=== PATIENT | male | born 1945 | race Caucasian/White ===

== ENCOUNTER 2016-11-20 10:46 | Emergency (ER) | payer OTHER, MEDICARE ==
[2016-11-20 10:52] VITALS: RESP 16
--- NOTE | 2016-11-20 11:32 | EDPHY ---
H & P Stated Complaint: sharp pain under left rib. 06/02 . cough. pain worse with cough Time Seen by Provider: 11/20/16 11:27 HPI/ROS: CHIEF COMPLAINT: Cough HISTORY OF PRESENT ILLNESS: This patient is a 71 year old man presenting with one week of persistent cough. Five days ago, he had a powerful coughing fit and had a sudden onset of left-sided chest pain. He took one round of Zithromax, prescribed by a family friend who is an emergency physician. The cough and chest pain has persisted. It is associated with mild shortness of breath today and ecchymotic changes over his left chest wall. He also reports mild rhinorrhea. Symptoms are moderate in severity. Denies fever, chills, nausea, or vomiting. He is a former smoker. He has no history of COPD or emphysema. REVIEW OF SYSTEMS: Aside from elements discussed in the HPI, a comprehensive 10-point review of systems was reviewed and is negative. 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 HEENT: Atraumatic. Eyes: No icterus, no injection. Mouth: moist mucous membranes. No erythema or lesions. Neck: supple with no adenopathy. LUNGS: Bi-basilar crackles and rhonchi, right worse than left. CARDIAC: Regular rate and rhythm, no rubs, murmurs or gallops. Mild chest wall tenderness. No crepitus over the chest wall. ABDOMEN: Soft, nontender, nondistended, bowel sounds normal. BACK: Ecchymosis over the left flank and left lateral lower abdomen. EXTREMITIES: No trauma. No edema. Range of motion is normal throughout. NEURO: Alert and oriented, grossly nonfocal. SKIN: Warm and dry, no rash. PSYCHIATRIC: Normal mentation, no agitation. Portions of this note were transcribed by a medical recruiter. I personally performed a history, physical exam, medical decision making, and confirmed accuracy of information the transcribed note. Source: Patient Exam Limitations: No limitations - Personal History Current Tetanus/Diphtheria Vaccine: Unsure Current Tetanus Diphtheria and Acellular Pertussis (TDAP): Unsure - Medical/Surgical History Hx Asthma: No Hx Chronic Respiratory Disease: No Hx Diabetes: No Hx Cardiac Disease: Yes Hx Renal Disease: No Hx Cirrhosis: No Hx Alcoholism: No Hx HIV/AIDS: No Hx Splenectomy or Spleen Trauma: No Other PMH: cataract surgeries,high cholesterol - Social History Smoking Status: Former smoker Constitutional: Initial Vital Signs Temperature (C) 35.9 C L 11/20/16 10:50 Heart Rate 62 11/20/16 10:50 Respiratory Rate 16 11/20/16 10:50 Blood Pressure 143/84 H 11/20/16 10:50 O2 Sat (%) 94 11/20/16 10:50 O2 Delivery Mode Room Air Allergies/Adverse Reactions: No Allergies [NKDA] Allergy (Verified 11/20/16 10:54) Home Medications: Medication Instructions Recorded Albuterol [Ventolin Hfa Inhaler] 2 - 4 puffs IH QID PRN #0 mdi 11/20/16 Evolocumab [Repatha Pushtronex] 420 mg SQ 11/20/16 Hydrocodone/APAP 5/325 [[place] 1 tab PO Q6H PRN #20 tab 11/20/16 5/325 (*)] Hydrocortisone [Cortef] 20 mg PO 11/20/16 Irbesartan [Avapro] 75 mg PO 11/20/16 Levothyroxine [Synthroid 125 mcg 11/20/16 (*)] Metformin HCl [Metformin 1000 mg] 1,000 mg PO 11/20/16 Niacin ER [Niaspan 1000 mg (*)] 1,000 mg PO HS 11/20/16 celeCOXIB [CeleBREX] 100 mg PO 11/20/16 levOFLOXACIN [levAQUIN (*)] 750 mg PO DAILY #7 tab 11/20/16 predniSONE 40 mg PO DAILY #6 tab 11/20/16 Medical Decision Making - Diagnostics Imaging: Study: PA and Lateral Chest X-ray Indication: Cough Results: I viewed the images myself on the PACS system. My interpretation of the images is: No acute findings, no focal infiltrate. The radiologist interpretation is pending at the time of this dictation. Study: CTA of the Chest Indication: Chest pain, cough Results: The results of the study are: No acute findings. No PE. Diffuse peribronchial thickening. The study was read by the radiologist, Dr. Mcgrath. I viewed the images myself on the PACS system. Study: CT of the abdomen pelvis Indication: Flank tenderness and ecchymosis Results: The results of the study are: Negative for rib fracture. Left renal stone 1mm. Negative abdomen. Diverticulosis without diverticulitis. Left inguinal fat only. The study was read by the radiologist, Dr. Mcgrath. I viewed the images myself on the PACS system. ED Course/Re-evaluation: CXR ordered. No focal infiltrate seen. D-dimer is elevated. Chest CTA and abdomen/pelvic CT ordered. Chest CT is negative for PE or acute findings, does show peribronchial thickening. Albuterol nebulizer given in the ED. Abdomen CT has minimal subacute findings, no source of ecchymosis identified. Prescribed [place] for pain , levaquin, prednisone, and albuterol inhaler. Instructed to follow up with PCP or pulmonology if not improving. Differential Diagnosis: Differential diagnosis for the patient's cough and pleuritic pain was considered including but not limited to viral versus bacterial bronchitis, asthma, COPD, pulmonary emboli, upper respiratory infection, lower respiratory infection, and bronchospasm. - Data Points Laboratory Results: Laboratory Results 11/20/16 11:20 11/20/16 11:20 11/20/16 11:20 WBC 6.47 10^3/uL (3.80-9.50) RBC 4.86 10^6/uL (4.40-6.38) Hgb 16.9 g/dL (13.7-17.5) Hct 46.3 % (40.0-51.0) MCV 95.3 fL (81.5-99.8) MCH 34.8 H pg (27.9-34.1) MCHC 36.5 g/dL (32.4-36.7) RDW 11.7 % (11.5-15.2) Plt Count 210 10^3/uL (150-400) MPV 8.8 fL (8.7-11.7) Neut % (Auto) 69.4 % (39.3-74.2) Lymph % (Auto) 18.7 % (15.0-45.0) [place] % (Auto) 9.1 % (4.5-13.0) Eos % (Auto) 2.3 % (0.6-7.6) Baso % (Auto) 0.3 % (0.3-1.7) Nucleat RBC Rel Count 0.0 % (0.0-0.2) Absolute Neuts (auto) 4.49 10^3/uL (1.70-6.50) Absolute Lymphs (auto) 1.21 10^3/uL (1.00-3.00) Absolute Monos (auto) 0.59 10^3/uL (0.30-0.80) Absolute Eos (auto) 0.15 10^3/uL (0.03-0.40) Absolute Basos (auto) 0.02 10^3/uL (0.02-0.10) Absolute Nucleated RBC 0.00 10^3/uL (0-0.01) Immature Gran % 0.2 % (0.0-1.1) Immature Gran # 0.01 10^3/uL (0.00-0.10) D-Dimer 0.69 H ug/mLFEU (0.00-0.50) Sodium 138 mEq/L (134-144) Potassium 4.9 mEq/L (3.5-5.2) Chloride 104 mEq/L (97-110) Carbon Dioxide 25 mEq/l (22-31) Anion Gap 9 mEq/L (8-16) BUN 18 mg/dL (7-23) Creatinine 1.0 mg/dL (0.7-1.3) Estimated GFR > 60 Glucose 95 mg/dL (70-100) Calcium 9.5 mg/dL (8.5-10.4) Total Bilirubin 0.8 mg/dL (0.1-1.4) Conjugated Bilirubin 0.3 mg/dL (0.0-0.5) Unconjugated Bilirubin 0.5 mg/dL (0.0-1.1) AST 44 IU/L (17-59) ALT 57 IU/L (21-72) Alkaline Phosphatase 63 IU/L (38-126) Total Protein 6.8 g/dL (6.3-8.2) Albumin 3.7 g/dL (3.5-5.0) Lipase 163.0 IU/L (23-300) Medications Given: Discontinued Medications Albuterol (Proventil Neb) 3 ml IH EDNOW ONE Stop: 11/20/16 13:39 Last Admin: 11/20/16 13:52 Dose: 3 ml Levofloxacin (Levaquin) 750 mg PO EDNOW ONE PRN Reason: Protocol Stop: 11/20/16 13:41 Last Admin: 11/20/16 13:52 Dose: 750 mg Prednisone (Prednisone) 60 mg PO EDNOW ONE Stop: 11/20/16 13:39 Last Admin: 11/20/16 13:52 Dose: 60 mg Departure - Departure Disposition: Home, Routine, Self-Care Clinical Impression: Cough, Pleuritic chest pain Condition: Good Instructions: Chest Pain (ED), Acute Cough (ED) Additional Instructions: Take the [place], as prescribed, for severe pain. Use the albuterol inhaler has needed. Take the Levaquin and Prednisone as prescribed. Follow up with your primary care provider or pulmonology in 1-2 weeks if not improving. Referrals: Juanpablo Garcia MD [Medical Doctor] - As per Instructions (Gastroenterologist) Jagdish Frances MD [Primary Care Provider] - As per Instructions (Primary care provider.) Prescriptions: Hydrocodone/APAP 5/325 [[place] 5/325 (*)] 1 tab PO Q6H PRN #20 tab PRN Reason: Pain Albuterol [Ventolin Hfa Inhaler] 2 - 4 puffs IH QID PRN #0 mdi PRN Reason: cough levOFLOXACIN [levAQUIN (*)] 750 mg PO DAILY #7 tab predniSONE 40 mg PO DAILY #6 tab Report Scribed for: Dori Frank Report Scribed by: Casi Nieto Date of Report: 11/20/16 Time of Report: 11:32
--- NOTE | 2016-11-20 11:53 | DX ---
PA and Lateral Chest Indication: Shortness of breath and cough Comparison: None Findings: The lungs are well aerated and clear. Minimal diffuse peribronchial thickening is present i n the lower lung zones. No pneumothorax, airspace consolidation, edema or effusion. Heart size is nor mal. Mild degenerative disease present in the lower thoracic spine. Impression: No pneumonia. Minimal airways disease.
[2016-11-20 12:07] LABS: % IMMATURE GRANULYOCYTES 0.2 % (0.0-1.1); ABSOLUTE IMMATURE GRANULOCYTES 0.01 10^3/uL (0.00-0.10); ADD DIFF? NO; ADD MORPH? NO; ADD SCAN? NO; ATYPICAL LYMPHOCYTE FLAG 10 (0-99); FRAGMENT RBC FLAG 0 (0-99); HEMATOCRIT 46.3 % (40.0-51.0); HEMOGLOBIN 16.9 g/dL (13.7-17.5); LEFT SHIFT FLG 0 (0-99); LIPEMIA HEMOLYSIS FLAG 90 (0-99); MEAN CELL HEMOGLOBIN 34.8 pg (27.9-34.1); MEAN CELL HEMOGLOBIN CONCENTR. 36.5 g/dL (32.4-36.7); MEAN CELL VOLUME 95.3 fL (81.5-99.8); MEAN PLATELET VOLUME 8.8 fL (8.7-11.7); PLATELET CLUMPS FLAG 10 (0-99); PLATELET COUNT 210 10^3/uL (150-400); RED BLOOD CELL COUNT 4.86 10^6/uL (4.40-6.38); RED CELL DISTRIBUTION WIDTH 11.7 % (11.5-15.2)
[2016-11-20 12:24] LABS: ALANINE AMINOTRANSFERASE 57 IU/L (21-72); ALBUMIN 3.7 g/dL (3.5-5.0); ALKALINE PHOSPHATASE 63 IU/L (38-126); ANION GAP 9 mEq/L (8-16); ASPARTATE AMINOTRANSFERASE 44 IU/L (17-59); BILIRUBIN,TOTAL 0.8 mg/dL (0.1-1.4); BILIRUBIN-CONJUGATED 0.3 mg/dL (0.0-0.5); BILIRUBIN-UNCONJUGATED 0.5 mg/dL (0.0-1.1); CALCIUM 9.5 mg/dL (8.5-10.4); CARBON DIOXIDE 25 mEq/l (22-31); CHLORIDE 104 mEq/L (97-110); GLOMERULAR FILTRATION RATE > 60; GLUCOSE 95 mg/dL (70-100); POTASSIUM 4.9 mEq/L (3.5-5.2); SODIUM 138 mEq/L (134-144); TOTAL PROTEIN 6.8 g/dL (6.3-8.2)
[2016-11-20] MEDS ORDERED: IOPAMIDOL (ISOVUE 370) 100 ML BTL IV ONE (12:34)
--- NOTE | 2016-11-20 13:15 | CT ---
CT Chest Angiogram, 12:46 p.m. Indication: Chest pain. Evaluate for rib fracture and pulmonary embolic disease. Technique: Thinly collimated multidetector helical CT imaging was performed through the chest while 95 mL of Isovue-370 were injected intravenously without complication. The images were then transferr ed to an independent workstation where multiplanar reconstructions were performed. Dose reduction khalif hniques were utilized. Findings: CT Chest Angiogram: The pulmonary arterial system is well opacified. No intraluminal filling defect s to suggest acute or chronic thrombopulmonary embolic disease. The thoracic aorta is normal caliber . No aneurysm or dissection. CT Chest: The lungs are well aerated and clear. No pneumothorax, edema, or airspace consolidation. No suspicious pulmonary nodule or mass. The airway has diffuse mild peribronchial thickening. No centra l mucous plugging or endobronchial lesion. No bronchiectasis. No enlarged lymph node or mass throughout the axilla, mediastinum, or pulmonary [place]. Heart size is n ormal. No pericardial effusion. Calcified plaque is present along the left anterior descending liriano ry artery. Minimal subcutaneous stranding is present near the left posterolateral 11th rib. No underlying rib fr acture or bone lesion. Minimal multilevel degenerative disk disease. No compression fracture. Impression: 1. No evidence of thrombopulmonary embolic disease. 2. Clear lungs. No pneumothorax or effusion. 3. No rib fracture or bone lesion. Comment: The results were discussed with Zac Graff PA-C, shortly after study completion at 1:10 p .m. November 20, 2016.
--- NOTE | 2016-11-20 13:25 | CT ---
CT Scan of the Abdomen and Pelvis (With Contrast) Indication: Left flank ecchymosis. Technique: No oral or rectal contrast. 95 mL of Isovue-300 were given intravenously by machine power injection. Multidetector helical CT imaging was performed from the diaphragm to the symphysis pubis . Dose reduction techniques were utilized. Comparison: CT angiogram of the abdomen and pelvis dated April 16, 2013. Findings: Minimal subcutaneous stranding is present along the left flank near the posterolateral 11th rib on images 64 through 100 of series 8. The underlying ribs are normal. No fracture, bone lesion, or abdominal wall hematoma. No free fluid, retroperitoneal hematoma, lymphadenopathy or mass. The liver, spleen, pancreas, gallbladder, adrenal glands, and kidneys are normal. A 1 mm nonobstructi ng calculus resides in the superior pole left kidney on image 86 of series 4. No hydronephrosis or ur eteral calculi. The urinary bladder is partially obscured by beam hardening artifact radiating off bi lateral hip resurfacing prostheses. Bowel pattern is normal with exception of constipation and mild diverticulosis of the sigmoid colon. The appendix is normal. The abdominal aorta is normal caliber with mild calcified plaque. No dissection or aneurysm. A left i nguinal indirect hernia containing only fat has increased in size since 2012. No lytic or blastic blessing ne lesion. Impression: 1. Minimal subcutaneous edema along the posterior left flank. No underlying fracture or hematoma. 2. No pancreatitis or acute intraabdominal inflammatory process. 3. Left nephrolithiasis. No obstructing ureteral calculi. 4. Sigmoid diverticulosis. 5. Left indirect inguinal hernia, containing only fat, has increased in size since 2012. Comment: Results were called to Zac Graff PA-C, shortly after study completion.
[2016-11-20] MEDS ORDERED: predniSONE 20 MG TAB PO ONE (13:38)
[2016-11-20] MEDS ORDERED: ALBUTEROL 3 ML DEYVIAL IH ONE (13:38)
[2016-11-20 15:01] VITALS: BP 138/85; PULSE 81; TEMP 98.2; O2SAT 92
== END 2016-11-20 15:01 | disposition home or self-care (01) ==
DX: R05 Cough (principal); R07.89 Other chest pain; E11.9 Type 2 diabetes mellitus without complications; I10 Essential (primary) hypertension; Z87.891 Personal history of nicotine dependence
CPT/HCPCS: 71020; 71275; 74177; Q9967

== ENCOUNTER 2017-03-23 19:48 | Emergency (ER) | payer OTHER, MEDICARE ==
[2017-03-23 20:04] VITALS: RESP 16
--- NOTE | 2017-03-23 20:43 | EDPHY ---
H & P Stated Complaint: LLE lac Time Seen by Provider: 03/23/17 20:00 HPI/ROS: Chief Complaint: Superficial leg laceration HPI: The patient presents to the ED with a superficial laceration to his left leg. The patient cut himself with a kitchen knife earlier. The patient denies any numbness or weakness. The patient did have a moderate amount of bleeding head is home. The patient reports his tetanus shot is up-to-date. REVIEW OF SYSTEMS: Neuro: no headache, numbness, weakness Musculoskeletal: as above Skin: As above Source: Patient Exam Limitations: No limitations - Personal History Current Tetanus/Diphtheria Vaccine: Yes Current Tetanus Diphtheria and Acellular Pertussis (TDAP): Yes Tetanus Vaccine Date: 2008 - Medical/Surgical History Hx Asthma: No Hx Chronic Respiratory Disease: No Hx Diabetes: No Hx Cardiac Disease: No Hx Renal Disease: No Hx Cirrhosis: No Hx Alcoholism: No Hx HIV/AIDS: No Hx Splenectomy or Spleen Trauma: No Other PMH: cataract surgeries,high cholesterol, R achilles tear - Social History Smoking Status: Former smoker - Physical Exam Exam: General Appearance: Alert, no distress Skin: 3 cm superficial laceration noted to theleft leg Musculoskeletal: Neck is supple nontender Extremities: symmetrical, full range of motion Constitutional: Initial Vital Signs Temperature (C) 36.6 C 03/23/17 20:01 Heart Rate 64 03/23/17 20:01 Respiratory Rate 16 03/23/17 20:01 Blood Pressure 134/85 H 03/23/17 20:01 O2 Sat (%) 95 03/23/17 20:01 O2 Delivery Mode Room Air Allergies/Adverse Reactions: levofloxacin [From Levaquin] Allergy (Verified 03/23/17 19:58) Home Medications: Medication Instructions Recorded Evolocumab [Repatha Pushtronex] 420 mg SQ 11/20/16 Hydrocortisone [Cortef] 20 mg PO 11/20/16 Irbesartan [Avapro] 75 mg PO 11/20/16 Levothyroxine [Synthroid 125 mcg 11/20/16 (*)] Metformin HCl [Metformin 1000 mg] 1,000 mg PO 11/20/16 Niacin ER [Niaspan 1000 mg (*)] 1,000 mg PO HS 11/20/16 celeCOXIB [CeleBREX] 100 mg PO 01/28/17 Medical Decision Making Procedures: Procedure: Laceration repair with skin glue Verbal consent was obtained from the patient. The 3 cm laceration on the left leg. The wound was irrigated per protocol . There were no deep structures involved. No tendon injury was identified. The wound was repaired with tissue adhesive. The procedure was performed by the physician program services assistant Vernell Walsh under my direction. ED Course/Re-evaluation: The patient presents to the ED with a superficial laceration to his left leg. The patient's wound was the cleaned and repaired with Dermabond. Departure - Departure Disposition: Home, Routine, Self-Care Clinical Impression: Laceration of left leg Condition: Good Instructions: Laceration (ED), Skin Adhesive Care (ED) Referrals: Jagdish Frances MD [Primary Care Provider] - As per Instructions
[2017-03-23] MEDS ORDERED: SKIN ADHESIVE (DERMABOND) 1 EACH TP ONE (20:54)
[2017-03-23 21:05] VITALS: BP 140/76; PULSE 81; TEMP 97.7; O2SAT 98
== END 2017-03-23 21:31 | disposition home or self-care (01) ==
PROC: 0HQLXZZ Repair Left Lower Leg Skin, External Approach (ICD-10-PCS; principal; 2017-03-23)
DX: S81.812A Laceration without foreign body, left lower leg, initial encounter (principal); Z87.891 Personal history of nicotine dependence; W26.0XXA Contact with knife, initial encounter; Y92.009 Unspecified place in unspecified non-institutional (private) residence as the place of occurrence of the external cause

== ENCOUNTER → 2017-10-21 | Outpatient (CLI) | payer OTHER, MEDICARE | LOC: FIMAGING 07:55 | PROVIDERS: ATTEND Homeopath | DX: R94.5 Abnormal results of liver function studies (principal); I70.0 Atherosclerosis of aorta; E78.4 Other hyperlipidemia ==

== ENCOUNTER → 2018-05-04 | Outpatient (CLI) | payer OTHER, MEDICARE | LOC: FIMAGING 19:34 | PROVIDERS: ATTEND Orthopaedic Surgery | DX: M65.852 Other synovitis and tenosynovitis, left thigh (principal); K40.90 Unilateral inguinal hernia, without obstruction or gangrene, not specified as recurrent; Z96.643 Presence of artificial hip joint, bilateral ==

== ENCOUNTER → 2018-07-04 | Outpatient (CLI) | payer OTHER, MEDICARE | LOC: BHFA 14:30 | PROVIDERS: ATTEND Internal Medicine Cardiovascular Disease | DX: I25.10 Atherosclerotic heart disease of native coronary artery without angina pectoris (principal); I77.9 Disorder of arteries and arterioles, unspecified; G47.33 Obstructive sleep apnea (adult) (pediatric) ==

== ENCOUNTER → 2018-07-25 | Outpatient (CLI) | payer OTHER, MEDICARE | LOC: FIMAGING 16:22 | PROVIDERS: ATTEND Internal Medicine Cardiovascular Disease | DX: R05 Cough (principal); R06.02 Shortness of breath; M95.4 Acquired deformity of chest and rib; M25.78 Osteophyte, vertebrae ==

== ENCOUNTER 2018-12-19 10:18 | Inpatient (IN) | payer OTHER, MEDICARE ==
--- NOTE | 2018-12-19 10:28 | EDPHY ---
H & P Stated Complaint: cp since tuesday/traveling in [place] Time Seen by Provider: 12/19/18 10:28 - Personal History Current Tetanus Diphtheria and Acellular Pertussis (TDAP): Yes Tetanus Vaccine Date: 2008 - Medical/Surgical History Hx Asthma: No Hx Chronic Respiratory Disease: No Hx Diabetes: No Hx Cardiac Disease: No Hx Renal Disease: No Hx Cirrhosis: No Hx Alcoholism: No Hx HIV/AIDS: No Hx Splenectomy or Spleen Trauma: No Other PMH: cataract surgeries,high cholesterol, R achilles tear PE - Social History Smoking Status: Former smoker Constitutional: Initial Vital Signs Temperature (C) 37.1 C 12/19/18 10:21 Heart Rate 69 12/19/18 10:21 Respiratory Rate 18 12/19/18 10:21 Blood Pressure 150/89 H 12/19/18 10:21 O2 Sat (%) 94 12/19/18 10:21 O2 Delivery Mode Room Air Allergies/Adverse Reactions: levofloxacin [From Levaquin] Allergy (Verified 12/19/18 10:19) Home Medications: Medication Instructions Recorded Evolocumab [Repatha Pushtronex] 420 mg SQ 11/20/16 Hydrocortisone [Cortef] 20 mg PO 11/20/16 Irbesartan [Avapro] 75 mg PO 11/20/16 Levothyroxine [Synthroid 125 mcg 11/20/16 (*)] Niacin ER [Niaspan 1000 mg (*)] 1,000 mg PO HS 11/20/16 celeCOXIB [CeleBREX] 100 mg PO 11/20/16 Advair 250/50 (*) 09/18/18 Liothyronine Sodium 09/18/18 Proair Hfa 09/18/18 Medical Decision Making - Diagnostics Imaging Results: Imaging Impressions Chest X-Ray 12/19/18 10:30 Impression: 1. Hazy increased density left mid to lower lung laterally that could represent loculated effusion or hemothorax adjacent to prior rib fractures. Clinical correlation suggested. If indicated, consider correlation with CT chest imaging. Findings discussed with Ac Amos MD at 11:40 hour, 12/19/2018. Chest CT 12/19/18 11:39 Impression: Old fractures of the left seventh through ninth ribs without acute process. No hemothorax or soft tissue hematoma. Otherwise, unremarkable evaluation of the chest. Findings and recommendations discussed with Ac Amos MD at 1215 hour, . Imaging: I viewed and interpreted images myself ED Course/Re-evaluation: CHIEF COMPLAINT: Chest pain HISTORY OF PRESENT ILLNESS: The patient is a 73 y/o male with a history of hypertension, CAD, dyslipidemia, and PE arriving with his complaining of substernal chest pain that sometimes radiates to his back and began Shaquille, 4 days ago, while traveling in [place]. He describes this pain as a sharp and burning sensation that is worse when bending over, like while tying his shoes. It is not obviously worse with exertion. He's had a mild cough as well, but otherwise denies any other symptoms. No nausea, vomiting, lightheadedness, dyspnea, fever, abdominal pain, leg pain, leg swelling. He takes aspirin, no other anticoagulants. He flew to [place], but denies any long travel or prolonged sedentary periods. No prior history of cardiac catheterization. REVIEW OF SYSTEMS: A comprehensive 10 system review of systems is otherwise negative aside from elements mentioned in the history of present illness and medical decision making. PHYSICAL EXAM: HR, BP, O2 Sat, RR. Temp noted General Appearance: Alert, well hydrated, appropriate, and non-toxic appearing. Head: Atraumatic without scalp tenderness or obvious injury Eyes: Pupils equal, round, reactive to light and accommodation, EOMI, no trauma , no injection. Ears: Clear bilaterally, no perforation, normal landmarks Nose: Atraumatic, no rhinorrhea, clear. Throat: There is no erythema or exudates, no lesions, normal tonsils, mucus membranes moist. Neck: Supple, nontender, no lymphadenopathy. Respiratory: No retractions, no distress, no wheezes, and no accessory muscle use. Lungs are clear to auscultation bilaterally. Cardiovascular: Regular rate and rhythm, no murmurs, rubs, or gallops. Good capillary refill all extremities. Gastrointestinal: Abdomen is soft, nontender, non-distended, no masses, no rebound, no guarding, no peritoneal signs. Musculoskeletal: Normal active ROM of all extremities, atraumatic. Neurological: Alert, appropriate, and interactive. The patient has non-focal cranial nerves, motor, sensory, and cerebellar exam. Skin: No rashes, good turgor, no nodules on palpation. Past medical history: Hypertension, CAD, carotid artery disease, dyslipidemia, obstructive sleep apnea, PE - provoked after surgery Past surgical history: Diskectomy, hip surgery, rotator cuff repair Family history: Noncontributory Social history: at bedside. Former smoker. Software Quality Analyst: Dr. Cowart. DIAGNOSTICS/PROCEDURES/CRITICAL CARE TIME: The 12 lead EKG was interpreted by myself. Sinus mechanism. No ischemia. See hard copy and/or "tracemaster" electronic copy for interpretation. Chest x-ray: Density left mid/lower lobe adjacent to prior rib fractures. Echocardiogram: nothing acute. Chest CT with IV contrast: old left rib fractures without acute process. DIFFERENTIAL DIAGNOSIS: The differential diagnosis for the patient's chest pain included but was not limited to myocardial ischemia, pulmonary embolus, chest wall pain, pleural inflammation, and pulmonary infectious causes. MEDICAL DECISION MAKING: This is a 73 y/o male with multiple cardiac risk factors who presents with a 4- day history of sharp, burning, substernal chest pain. Exam is unremarkable. History is concerning for cardiac process, though story does not align with ACS. Plan for IV, labs, EKG, chest x-ray, 324mg PO aspirin. Troponin and d-dimer are normal. Chest x-ray shows a left mid/lower lobe density near prior rib fractures that could be hemothorax. Chest CT w/IV contrast ordered for better evaluation. Consulted with Beatrice from cardiology. She agrees with plan for echocardiogram due to significant cardiac history and ongoing pain. Her service will consult. 1144: Reassessed patient and discussed findings. He tells me he fractured ribs on his left side about 2 years ago. He agrees with plan for Chest CT and echocardiogram. 1310: Consulted with Dr. Hammonds, cardiology. She reports he his calcium score double from 400 in 2014 to over 800 last year and he was started on Repatha. She recommends admission for further provocative cardiac testing and likely catheterization. Spoke with hospitalist service. Dr. Lynn accepts admission. Reassessed patient and discussed findings. He agrees with plan for admission. - Data Points Laboratory Results: Laboratory Results 12/19/18 10:45 12/19/18 10:45 12/19/18 12/19/18 12/19/18 10:52 10:45 10:45 WBC 10.12 10^3/uL H 10^3/uL (3.80-9.50) RBC 5.04 10^6/uL 10^6/uL (4.40-6.38) Hgb 15.7 g/dL g/dL (13.7-17.5) Hct 47.4 % % (40.0-51.0) MCV 94.0 fL fL (81.5-99.8) MCH 31.2 pg pg (27.9-34.1) MCHC 33.1 g/dL g/dL (32.4-36.7) RDW 13.2 % % (11.5-15.2) Plt Count 216 10^3/uL 10^3/uL (150-400) MPV 9.5 fL fL (8.7-11.7) Neut % (Auto) 76.2 % H % (39.3-74.2) Lymph % (Auto) 9.5 % L % (15.0-45.0) [place] % (Auto) 12.3 % % (4.5-13.0) Eos % (Auto) 1.4 % % (0.6-7.6) Baso % (Auto) 0.3 % % (0.3-1.7) Nucleat RBC Rel Count 0.0 % % (0.0-0.2) Absolute Neuts (auto) 7.72 10^3/uL H 10^3/uL (1.70-6.50) Absolute Lymphs (auto) 0.96 10^3/uL L 10^3/uL (1.00-3.00) Absolute Monos (auto) 1.24 10^3/uL H 10^3/uL (0.30-0.80) Absolute Eos (auto) 0.14 10^3/uL 10^3/uL (0.03-0.40) Absolute Basos (auto) 0.03 10^3/uL 10^3/uL (0.02-0.10) Absolute Nucleated RBC 0.00 10^3/uL 10^3/uL (0-0.01) Immature Gran % 0.3 % % (0.0-1.1) Immature Gran # 0.03 10^3/uL 10^3/uL (0.00-0.10) PT INR APTT D-Dimer Sodium 136 mEq/L mEq/L (135-145) Potassium 4.8 mEq/L mEq/L (3.5-5.2) Chloride 105 mEq/L mEq/L (97-110) Carbon Dioxide 23 mEq/l mEq/l (22-31) Anion Gap 8 mEq/L mEq/L (6-14) BUN 25 mg/dL H mg/dL (7-23) Creatinine 1.1 mg/dL mg/dL (0.7-1.3) Estimated GFR > 60 Glucose 105 mg/dL H mg/dL (70-100) Calcium 9.7 mg/dL mg/dL (8.5-10.4) POC Troponin I 0.01 ng/mL ng/mL (0.00-0.08) NT-Pro-B Natriuret Pep 46 pg/mL pg/mL (0-125) 12/19/18 10:29 WBC RBC Hgb Hct MCV MCH MCHC RDW Plt Count MPV Neut % (Auto) Lymph % (Auto) [place] % (Auto) Eos % (Auto) Baso % (Auto) Nucleat RBC Rel Count Absolute Neuts (auto) Absolute Lymphs (auto) Absolute Monos (auto) Absolute Eos (auto) Absolute Basos (auto) Absolute Nucleated RBC Immature Gran % Immature Gran # PT 13.1 SEC SEC (12.0-15.0) INR 0.97 (0.83-1.16) APTT 25.8 SEC SEC (23.0-38.0) D-Dimer 0.46 ug/mLFEU ug/mLFEU (0.00-0.50) Sodium Potassium Chloride Carbon Dioxide Anion Gap BUN Creatinine Estimated GFR Glucose Calcium POC Troponin I NT-Pro-B Natriuret Pep Medications Given: Discontinued Medications Aspirin (Aspirin) 324 mg PO EDNOW ONE Stop: 12/19/18 10:39 Last Admin: 12/19/18 10:54 Dose: 324 mg Point of Care Test Results: Chemistry 12/19/18 10:52 POC Troponin I 0.01 ng/mL ng/mL (0.00-0.08) Departure - Departure Disposition: [facility] Inpatient Acute Clinical Impression: Chest pain Qualifiers: Chest pain type: other chest pain Qualified Code(s): R07.89 - Other chest pain Condition: Fair Referrals: SHARON MONTEIRO [Other] - As per Instructions Report Scribed for: Ac Amos Report Scribed by: Vania Jasso Date of Report: 12/19/18 Time of Report: 10:29
[2018-12-19] MEDS ORDERED: ASPIRIN 81 MG CHEWABLE TAB PO ONE (10:38)
[2018-12-19 11:01] LABS: PLATELET COUNT 216 10^3/uL (150-400)
[2018-12-19 11:10] LABS: INR 0.97 (0.83-1.16); PROTIME(PATIENT) 13.1 SEC (12.0-15.0)
[2018-12-19] MEDS ORDERED: IOPAMIDOL (ISOVUE-300) 100 ML BTL ONE (11:44)
--- NOTE | 2018-12-19 13:15 | ECHO ---
[email or web address] [address] [address] Main: [phone] Fax: Transthoracic Echocardiogram Name: THOMAS BLACK MR#: [id number] Study Date: 12/19/2018 Study Time: 12:23 PM Date of : 1945 Age: 73 year(s) Height: 182.9 cm (72 in.) Weight: 81.65 kg (180 lb.) BSA: 2.04 m2 Gender: Male Examination: Echo Indication: Chest Pain Image Quality: Adequate Contrast: Requested by: Ac Amos BP: 132 mmHg/82 mmHg Heart Rate: Rhythm: Indication: Chest Pain Procedure Staff Litigator: Vernell Marcelino RD Reading Physician: Nuvia Hammonds MD Requesting Provider: Conclusions: Normal size left ventricle. Normal global systolic LV function. EF is 65 %. No regional wall motion abnormality. Mild septal hypertophy. . Normal size right ventricle. Normal RV function. No pericardial effusion. There is no previous echocardiogram for comparison. Measurements: Chambers Valvular Assessment AV/MV Valvular Assessment TV/PV Normal Normal Normal Name Value Range Name Value Range Name Value Range Ao Maryana (MM): 3.6 cm (2.2 cm-3.7 AV Vmax: 1.33 m/s (1 m/s-1.7 PV Vmax: 0.82 m/s (0.6 m/s-0.9 cm) m/s) m/s) IVSd (2D): 1.3 cm (0.6 cm-1.1 AV maxP mmHg ( - ) PV PGmax: 3 mmHg ( - ) cm) LVOT Vmax: 1.08 m/s (0.7 m/s-1.1 LVDd (2D): 3.8 cm (4.2 cm-5.9 m/s) cm) CARMELA (Vmax): 3.1 cm2 ( - ) LVDs (2D): 2.6 cm (2.1 cm-4 MV E Vmax: 0.60 m/s ( - ) cm) MV A Vmax: 0.76 m/s ( - ) LVPWd (2D): 1.0 cm (0.6 cm-1 MV E/A: 0.79 ( - ) cm) LVOTd 2.2 cm 2.2 cm mm LVEF (BP): 65 % (>=55 %) RVDd(2D): 3.5 cm (1.9 cm-3.8 cmmm) Continued Measurements: Patient: THOMAS BLACK Study Date: 12/19/2018 Page 1 of 2 12:23 PM Chambers Valvular Assessment AV/MV Name Value Name Value LADs: 3.1 cm MV DecTime: 229 m/s LADs Lon.1 cm MV E/E' Septal: 12.50 LA Area: 18.3 cm2 MV E/E' Lateral: 7.80 LA Volume: 47 ml LA Volume Index: 23.0 ml/m2 TAPSE: 1.7 cm RA Area: 11.8 cm2 Additional Vessels Name Value Ao Ascendin.5 cm Findings: Left Ventricle: Normal size left ventricle. Normal global systolic LV function. EF is 65 %. No regional wall motion abnormality. Normal diastolic LV function. Mild septal hypertophy. . Right Ventricle: Normal size right ventricle. Normal RV function. Left Atrium: The left atrium is normal in size. Right Atrium: The right atrium is normal in size. Mitral Valve: The mitral valve is normal in appearance. There is no significant mitral valve regurgitation. No mitral stenosis is present. Aortic Valve: The aortic valve is tri-leaflet. Aortic sclerosis is present. There is no aortic valve regurgitation. No aortic valve stenosis is present. Tricuspid Valve: The tricuspid valve is normal in appearance and function. There is no significant tricuspid valve regurgitation. Pulmonary artery pressure is not obtained due to inadequate TR jet. Pulmonic Valve: Pulmonary valve not well visualized. Trivial pulmonic valve regurgitation. Aorta: The aorta is normal. Normal size aortic root measuring 3.6 cm. Normal size ascending aorta measuring 3.5 cm. IVC: Normal size and course of the IVC. Pericardium: No pericardial effusion. (No Signature Object) Patient: THOMAS BLACK Study Date: 12/19/2018 Page 2 of 2 12:23 PM [id number]
--- NOTE | 2018-12-19 14:38 | CPEKG ---
Test Reason : OPEN Blood Pressure : / mmHG Vent. Rate : 067 BPM Atrial Rate : 067 BPM P-R Int : 166 ms QRS Dur : 094 ms QT Int : 365 ms P-R-T Axes : 033 045 027 degrees QTc Int : 386 ms Sinus rhythm Minimal ST depression, inferior leads Confirmed by Ac Amos ([id number]) on 12/19/2018 2:37:59 PM Referred By: Ac Amos Confirmed By:Ac Amos
[2018-12-19] MEDS ORDERED: IBUPROFEN 200 MG TAB PO ONE (14:56)
--- NOTE | 2018-12-19 15:43 | GCON ---
[f rep st] CONSULTATION CARDIOLOGY CONSULT DATE OF CONSULTATION: 12/19/2018 PRIMARY CARE PHYSICIAN: JOHAN Muir PRIMARY RECREATION COUNSELOR: Dr. Jakub Cowart CHIEF COMPLAINT: Chest pain. HISTORY OF PRESENT ILLNESS: We were asked by Dr. Amos in the ER to visit with this patient. The patient is a 73-year-old male with known coronary disease on the basis of a positive calcium score. His last scan was November 24 of this year, showing significant increase over his previous score, no w totaling 893 with 750 in the LAD. He also has hypertension, dyslipidemia, sleep apnea, past histor y of PE, ascending aortic dilation. He is admitted through the ER for further evaluation of chest pain. Since of last week, andrea weller is approximately 5 days ago, he has had fairly constant left-sided chest discomfort in an area loc alized to his left parasternal region. This does not radiate except for rare radiation to his upper back, but he also has some arthritis, so he is wondering whether the back discomfort is related to ar thritis. The pain is described as pins and needles with occasional sharp component. No pleuritic co mponent. When he bends over to tie his shoes, the pain gets worse. When he lies down, it improves. It does not get worse with exertion. He has not been exercising since . Previously, he was riding a recumbent bike without chest pain. He denies associated dyspnea, diaphoresis, or nausea. He has not had palpitations, syncope, or lower extremity edema. He has not had similar pain in the past. REVIEW OF SYSTEMS: A full 10-point review of systems was performed and is negative, except that whic h is outlined in the History of Present Illness. ALLERGIES: Levofloxacin caused bilateral Achilles tendinitis and unilateral Achilles tendon rupture. PAST MEDICAL HISTORY: 1. Coronary disease on the basis of positive calcium score. 2. Obstructive sleep apnea. 3. Hypertension. 4. Dyslipidemia. 5. Mildly dilated ascending aorta at 4 cm. 6. History of left inguinal hernia repair. 7. Carotid arterial disease. 8. PE. 9. Hypothyroidism. OUTPATIENT MEDICATIONS: Vitamin C, Celebrex, I am not sure he has actually been taking his Lunesta, Repatha, Advair, Cortef, Avapro, Synthroid, Cytomel, and niacin. SOCIAL HISTORY: The patient does not smoke cigarettes. He drinks alcohol in moderation. 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 He is , and is his is at the bedside. FAMILY HISTORY: Notable for premature cardiovascular disease in several relatives. PHYSICAL EXAM: VITAL SIGNS: Blood pressure 124/77, heart rate 73, oxygen saturation 91% on room air . He is afebrile. Respiratory rate is 20. GENERAL: Well-appearing older male in no acute distress . HEENT: Sclerae are clear and free of jaundice. Mucous membranes are moist. Normocephalic, atrau matic. CARDIOVASCULAR: JVP is less than 10. Carotids equal and 2+ bilaterally without bruit. Regu lar rate and rhythm without murmur or gallop. Palpation over the chest wall elicits no tenderness. There is no identifiable rash. LUNGS: Clear to auscultation bilaterally. No wheeze, rhonchi, or ra les. ABDOMEN: Soft, nontender, nondistended without bruits, masses, or hepatosplenomegaly. EXTREMI TIES: Warm and well perfused without cyanosis, clubbing, or edema. NEURO: Alert and oriented x3 wi thout gross focal neurological deficits. PSYCHIATRIC: Appropriate mood and affect. LABORATORY DATA: White count 10.1, hematocrit 47, and platelets are 216. D-dimer is within normal r karri. INR 0.97. Basic metabolic panel normal except for BUN of 25 and glucose of 105. Point of car e troponin is 0.01. BNP is 46. EKG reviewed by me shows sinus rhythm without ischemic changes. Echocardiogram, reviewed by me: Mild asymmetric LVH. Normal LV systolic function. No regional wall motion abnormalities. No significant valvular disease. No pericardial effusion. Chest x-ray: Increased density in the mid to lower lung on the left. Followup CT with contrast: Th ere was no mention of whether or not there was a PE, even though this was a contrast study. There ar e old fractures of the left 7th through 9th ribs. No pneumothorax or pneumonia. Nodular scarring at both lung apices. Heart scan as detailed per HPI. ASSESSMENT AND PLAN: A 73-year-old male with known coronary disease on the basis of a positive calci um score as well as ongoing risk factors of hypertension, dyslipidemia, possibly impaired fasting glu cose, and family history. He presents with chest pain that has mostly atypical features for angina. Despite 5 days of pain, his initial troponin is negative, and his EKG is nonischemic. Echo is reass uring without regional wall motion abnormalities. Differential diagnosis includes angina, musculoske letal pain, gastrointestinal pathology. 1. Chest pain: We will try a single dose of ibuprofen now with careful attention to renal function. If this improves symptoms, that would be helpful. He will be observed overnight with serial EKGs a nd serial troponins. Monitor on telemetry. If troponins remain negative, he will be scheduled for L exiscan nuclear stress test in the morning. He is unable to exercise on a treadmill due to his bilat eral Achilles tendon issues. Continue Repatha as an outpatient. Aspirin should also continue. 2. Hypertension: Continue outpatient medical therapy. Currently well controlled. 3. Dyslipidemia: He is on Repatha. 4. Elevated glucose: Check hemoglobin A1c. 5. Mildly dilated ascending aorta. Blood pressure management. Outpatient surveillance. Thank you for allowing us to participate in the patient's care. We will follow with you. Copy requested to: JOHAN Muir /[id number]/MODL
[2018-12-19] MEDS ORDERED: ACETAMINOPHEN 325 MG TAB PO PRN (16:09)
[2018-12-19] MEDS ORDERED: ONDANSETRON 4 MG/2 ML VIAL IVP PRN (16:09)
[2018-12-19] MEDS ORDERED: ONDANSETRON DISINTEGRATING 4 MG TAB PO PRN (16:09)
--- NOTE | 2018-12-19 16:59 | GHP ---
[f rep st] HISTORY AND PHYSICAL DATE OF ADMISSION: 12/19/2018 Mr. Barfield is a pleasant 73-year-old gentleman with history of hyperlipidemia, family history of shayy nary artery disease with several days of left-sided chest pain. It sounds like it is nonexertional i n nature. Does not radiate to his jaw. He does have known coronary disease on the basis of a calciu m score that significantly increased over the last year. The chest pain does occasionally go to his upper back. He has been pulling a suitcase lately and he is wondering if that is not what has gone o n. He does not have cough, fever, chills, chest pain. He does not have a history of exertional angina. PAST MEDICAL HISTORY: Coronary artery disease based on a positive calcium store, OG, hypertension, dyslipidemia, mildly dilated ascending aorta at 4 cm, history of left inguinal repair, carotid artery disease, history of PE, hypothyroidism, adrenal insufficiency. OUTPATIENT MEDICINES: 1. Vitamin C. 2. Celebrex. 3. Lunesta. 4. Repatha. 5. Advair. 6. Cortef. 7. Avapro. 8. Synthroid. 9. Cytomel. 10. Niacin. ALLERGIES: Levofloxacin. SOCIAL HISTORY: Nonsmoker. Occasional alcohol. 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 FAMILY HISTORY: Noted for coronary disease in early relatives. PHYSICAL EXAMINATION: VITAL SIGNS: Temp 37, blood pressure 134/70, pulse 73, breathing 18 times a m inute, 97% on room air. GENERAL: No acute distress. HEENT: Sclerae anicteric. Oropharynx clear. Mucous membranes moist. NECK: Supple. No lymphadenopathy or JVD. LUNGS: Clear to auscultation b ilaterally. HEART: S1, S2. ABDOMEN: Soft, nontender, nondistended. LOWER EXTREMITIES: No edema. Calves are nontender. SKIN: Without rash. NEUROLOGICAL: Exam is nonfocal. White count 10, hematocrit 47, platelets 216,000. INR is 0.97. D-dimer 0.46. Chem-7 is normal othe r than a BUN of 1.1. Point of care A1c is 0.01. BNP is low at 46. EKG interpreted by me shows sinu s at 67 with normal axis and intervals. No ST or T-wave changes. Chest x-ray shows no acute cardiop ulmonary disease other than there is a questionable left-sided area around his history of broken ribs . His chest CT shows old fractures of the 7th and 9th ribs without acute process, pneumothorax or __ soft tissue hematoma and otherwise unremarkable. Echocardiogram shows normal LV size and fu nction. Normal diastolic LV function, mild septal hypertrophy, otherwise unremarkable. Discussed th e case with Dr. Nuvia Hammonds. ASSESSMENT AND PLAN: 73-year-old gentleman with chest pain. 1. Chest pain. This is atypical, but his pretest probability for coronary disease or ACS is on the higher side. I agree with cycling troponins and nuclear stress test in the morning versus angiogram should his troponins become positive, etc. 2. Hyperlipidemia. Continue his Repatha. 3. Rib fractures. These are remote, not causing his pain. 4. Elevated BUN. We will follow. Prophylaxis. Low risk. DISPOSITION: Observation status. /[id number]/MODL
[2018-12-19] MEDS ORDERED: NIACIN 500 MG TAB PO SCH (21:00)
[2018-12-19] MEDS: ZOLPIDEM TARTRATE 5 MG TAB PO SCH (21:26)
[2018-12-19] MEDS: FLUTICASONE/SALMETER 250/50MCG DISKUS IH SCH (21:27)
[2018-12-19] MEDS: HYDROCORTISONE 10 MG TAB PO SCH (23:48)
[2018-12-20] MEDS: LEVOTHYROXINE 125 MCG TAB PO SCH (06:05)
[2018-12-20] MEDS ORDERED: REGADENOSON 0.4 MG/5 ML SYR IVP ONE (09:39)
[2018-12-20] MEDS: FLUTICASONE/SALMETER 250/50MCG DISKUS IH SCH ×2 (09:41→19:57)
--- NOTE | 2018-12-20 09:58 | PDCARPN ---
Cardiology Progress Note Assessment/Plan: Assessment/Plan: 73-year-old male with known coronary disease on the basis of positive calcium score. The majority of his calcific disease in the LAD, with a score in the mid 700s. He also has hypertension and dyslipidemia that is treated with Repatha. He was admitted December 19 with 5 days of ongoing chest discomfort. Serial troponins have been negative. EKG nonischemic. Echocardiogram reassuring. 1. Coronary disease and chest pain: Negative workup thus far. He is in the process of completing Lexiscan myocardial perfusion study for further risk assessment. I reviewed his CT scan that was done yesterday with Radiology. This was not time to definitively rule out PE, but there is no on large central PE visible. Calcific LAD disease is noted. No significant aortic disease except for mildly dilated ascending aorta at 4 cm. Continue aspirin, check lipids. Continue Repatha. Continue irbesartan. Await nuclear stress test results. I have also ordered an ESR and CRP as his pain seems somewhat inflammatory/musculoskeletal. 2. Hypertension: Well controlled. Continue irbesartan 3. Mildly dilated ascending aorta: Continue blood pressure control. Serial outpatient surveillance. 4. Non flow-limiting carotid disease: Continue primary prevention. If his nuclear stress test is normal he may be discharged from a cardiovascular standpoint. Follow up with Dr. Cowart who is his usual outpatient therapist's assistant. 12/20/18 10:00 Subjective: Percy reports his chest pain may be slightly better. Ibuprofen taken last night did not significantly improve symptoms, although he can now move his neck more freely without neck or chest discomfort. No dyspnea. Objective: Vital Signs (8 Hrs) Temp Pulse Resp BP Pulse Ox 12/20/18 08:12 36.8 C 77 13 127/84 H 94 12/20/18 04:00 36.7 C 79 20 134/69 H 97 Intake/Output (24 Hrs) 12/19/18 12/20/18 12/21/18 05:59 05:59 05:59 Intake Total 480 Balance 480 Intake: Oral (ml) 480 Other: Weight 81.647 kg Number of Voids Toilet 2 No acute distress. Regular rate and rhythm without murmur gallop Lungs clear anteriorly and laterally. No lower extremity edema Result Diagrams: 12/19/18 10:45 12/19/18 10:45 Cardiac Labs: Cardiac Lab Results (72 Hrs) 12/19/18 12/19/18 21:15 15:18 Troponin I < 0.012 < 0.012 EKG: Normal sinus rhythm. No ischemic changes. Telemetry: Sinus rhythm with occasional PACs and occasional PVCs. ICD10 Worksheet Patient Problems: Problems Problem Status Onset Chest pain Acute
[2018-12-20] MEDS: ASCORBIC ACID 500 MG TAB PO SCH (11:13)
[2018-12-20] MEDS: IRBESARTAN 75 MG TAB PO SCH (11:14)
[2018-12-20] MEDS: ASPIRIN 325 MG TAB PO SCH (11:14)
[2018-12-20] MEDS: LIOTHYRONINE SODIUM 5 MCG TAB PO SCH (11:17)
[2018-12-20] MEDS: HYDROCORTISONE 10 MG TAB PO SCH ×2 (11:17→21:42)
[2018-12-20] MEDS: NIACIN 500 MG TAB PO SCH (11:18)
--- NOTE | 2018-12-20 12:41 | CPIP ---
[f rep st] INVASIVE CARDIAC PROCEDURE DATE OF PROCEDURE: 12/20/2018 REPORT TITLE Lexiscan stress test report INDICATIONS: Chest pain. COMPLICATIONS: None. DESCRIPTION OF PROCEDURE: Informed consent was obtained. The patient was established to the monitor . Test was performed in nuclear medicine. He received standard dose of Lexiscan, followed by weight based Tc dosing per nuclear medicine protocol. FINDINGS: 1. Resting EKG is normal. 2. Stress EKG showed no arrhythmia and no ST changes. HEMODYNAMICS: Resting blood pressure 124/86, heart rate 77, oxygen saturation 91%. With peak infusi on response, blood pressure dropped to 110/74, heart rate 105. Oxygen saturation remained above 90% throughout testing. The patient felt slight chest heaviness that resolved with time. CONCLUSIONS: Uneventful Lexiscan infusion. Await nuclear images.. /[id number]/MODL
[2018-12-20] MEDS ORDERED: TEMAZEPAM 15 MG CAP PO PRN (13:15)
[2018-12-20] MEDS ORDERED: NITROGLYCERIN 0.4 MG BTL SL PRN (13:15)
--- NOTE | 2018-12-20 13:25 | HOSPPROG ---
Hospitalist Progress Note Assessment/Plan: 73 yo M w cp, + stress cad: cath in AM trop neg follow on tele hyperlipidemia: ldl 48 hypothyroidism: continue meds adrenal insufficiency: contniue cortisone would gove 1 time dose stress steroids dispo: inpt Subjective: stress + for inferolateral ischemia Objective: Vital Signs Temp Pulse Resp BP Pulse Ox 36.9 C 85 22 H 115/77 93 12/20/18 12:01 12/20/18 12:01 12/20/18 12:01 12/20/18 12:01 12/20/18 12:01 Laboratory Results 12/20/18 10:54 12/19/18 12/20/18 12/21/18 05:59 05:59 05:59 Intake Total 480 Balance 480 PT 13.1 SEC (12.0-15.0) 12/19/18 10:29 INR 0.97 (0.83-1.16) 12/19/18 10:29 - Physical Exam Constitutional: no apparent distress, appears nourished Ears, Nose, Mouth, Throat: moist mucous membranes, hearing normal Cardiovascular: regular rate and rhythym, no murmur, rub, or gallop Respiratory: no respiratory distress, no rales or rhonchi Gastrointestinal: normoactive bowel sounds, soft, non-tender abdomen Genitourinary: no bladder fullness, No crawley in urethra Skin: warm, normal color Musculoskeletal: full muscle strength, no muscle tenderness Neurologic: AAOx3 ICD10 Worksheet Patient Problems: Problems Problem Status Onset Chest pain Acute
--- NOTE | 2018-12-20 14:19 | ASMTCMCOM ---
CM Note CM Note Notes: Pt is a 73 yo M, presented with chest pain. Underwent stress test today. No therapies ordered at this time, pt will likely be discharged independently once medically ready. Pt's is at bedside and supportive. CM available if needs arise. Plan: Independent Date Signed: 12/20/2018 02:18 PM Electronically Signed By:CESAR Chase
--- NOTE | 2018-12-20 16:55 | PDMN ---
Medical Necessity Medical necessity: Change to IP, as of 12/20/17, per & MCG MG-C Cardiology; los >2 mn for ongoing management of CAD w/chest pain; requiring further monitoring & cardiac cath
[2018-12-20] MEDS: ZOLPIDEM TARTRATE 5 MG TAB PO SCH (21:42)
[2018-12-21 04:38] LABS: INR 0.97 (0.83-1.16); PROTIME(PATIENT) 12.5 SEC (12.0-15.0)
[2018-12-21] MEDS ORDERED: diphenhydrAMINE 25 MG CAP PO ONE ×2 (06:00→09:19)
[2018-12-21] MEDS ORDERED: FAMOTIDINE 20 MG TAB PO ONE (06:00)
[2018-12-21] MEDS ORDERED: DIAZEPAM 5 MG TAB PO ONE (06:00)
[2018-12-21] MEDS: LEVOTHYROXINE 125 MCG TAB PO SCH (06:18)
[2018-12-21] MEDS: ASCORBIC ACID 500 MG TAB PO SCH (08:23)
[2018-12-21] MEDS: IRBESARTAN 75 MG TAB PO SCH (08:24)
[2018-12-21] MEDS: NIACIN 500 MG TAB PO SCH (08:25)
[2018-12-21] MEDS: HYDROCORTISONE 10 MG TAB PO SCH ×2 (08:26→21:20)
[2018-12-21] MEDS: LIOTHYRONINE SODIUM 5 MCG TAB PO SCH (08:26)
[2018-12-21] MEDS: ASPIRIN 325 MG TAB PO SCH (08:26)
[2018-12-21] MEDS: FLUTICASONE/SALMETER 250/50MCG DISKUS IH SCH ×2 (09:17→20:55)
[2018-12-21] MEDS ORDERED: ASPIRIN EC 325 MG TAB PO ONE (09:19)
[2018-12-21] MEDS ORDERED: FAMOTIDINE 20 MG TAB ONE (09:19)
[2018-12-21] MEDS ORDERED: DIAZEPAM 5 MG TAB ONE (09:20)
[2018-12-21] MEDS ORDERED: LIDOCAINE 1% 300 MG/30 ML SDV ONE (09:30)
[2018-12-21] MEDS ORDERED: fentaNYL 100 MCG/2 ML INJ ONE (09:30)
[2018-12-21] MEDS ORDERED: VERAPAMIL 5 MG/2 ML VIAL ONE (09:31)
[2018-12-21] MEDS ORDERED: IOPAMIDOL (ISOVUE-370) 150 ML BTL IV ONE (09:31)
[2018-12-21] MEDS ORDERED: HEPARIN 10,000 UNIT/10 ML MDV (1,000 UNIT/ML) ONE (09:31)
[2018-12-21] MEDS ORDERED: MIDAZOLAM 2 MG/2 ML VIAL ONE (09:31)
--- NOTE | 2018-12-21 10:12 | PDPROPOC ---
Sedation Plan of Care Sedation Plan of Care: vital signs stable, mental status noted, patient educated of risks, benefits, alternatives, patient can tolerate sedation ASA Classification: ASA 3 Planned drugs: fentanyl, midazolam Mallampati Score: Class 2 Mallampati Reference Image: Patient passed 3-3-2 rule?: Yes
--- NOTE | 2018-12-21 10:13 | PDHPUP ---
History & Physical Update H&P update statement: This history and physical update is based on an assessment of the patient which was completed after admission or registration (within 24 hours), but prior to the surgery/procedure. H&P update: H&P reviewed & patient examined, changes noted (patient continues to have resting pain if cardiac is CCS Class IV and high risk stress test.)
--- NOTE | 2018-12-21 10:41 | PDDXCAT ---
Diagnostic Cath Note - . Date: 12/21/18 Heavy Machinery Operator: Sofya Indication: CCC Class III and IV angina on medical treatment, High-risk criteria on noninvasive testing (choose option below) High-risk criteria on non-invasive testing: stress-induced large perfusion defect (particularly if anterior) - Procedure Access: right wrist Procedure: left heart catheterization, coronary angiography - Materials Left Heart Cath size: 5F Left Heart Cath materials: JL3.5, JR4.0 - Findings-Left Heart Catheterization LM: The left main is 6mm in size and bifurcates into a LAD and Circumflex system. LAD: The left anterior descending is 3mm in size. There are luminal irregularities consistent with atherosclerosis. The maximal luminal stenosis is 40% proximal to the LAD diagonal bifurcation. LCX: The left circumflex is 3.5mm in size. There vessel gives rise to one important obtuse marginal branch which has an Alpha and Beta branch. There is 40 % stenosis in the ostial takeoff of each branch. There is a 20% stenosis in the proximal circumflex. There is BOBBY III flow throughout. RCA: The right coronary artery is 4mm in size and dominant. There is a 20% ostial lesion of the right coronary artery. There is a 75%-80% obstruction distal to the acute marginal branch. EDP: 14mmHg LVEF: 50% Wall motion: On the LV gram there is mildly decreased LV systolic function. The EF is 50%. There is moderate basal inferior hypokinesis and mild global hypokinesis. The visualized portion of the thoracic aortic valve reveals three sinuses of valsalva most consistent with a trileaflet valve. There is no gradient on pullback across the aortic valve. There is no evidence of ray dissection or aneurysm formation of the thoracic aorta. - Findings-Right Heart Catheterization AO: Complications: NONE Estimated blood loss: <50ml Closure method: TR Band Assessment: The patient has hughes vessel coronary disease. There is a 75%-80% stenosis of the distal RCA measured by quantitative coronary analysis to be 78% . The patient is documented to have luminal irregularities consistent with atherosclerosis in his LAD and Circumflex. The maximal luminal stenosis in either vessel is 40 percent or less. The patient has mildly reduced LV systolic function measuring 50% consistent with mild global hypokinesis and basal inferior wall hypokinesis. Plan: Aspirin 81mg along with Plavix 75mg daily should be continued for at least 1 year following drug eluting stent implantation. No elective surgery for the first 3 months. Decisions to stop dual antiplatelet therapy before 1 year should involve our office [facility] at . Intervention: A 6 Bahraini JR4 guiding catheter was used for guide catheter support along with a 6 Bahraini guide liner. A 0.014" 180 cm Choice PT Floppy Wire was advanced across the lesion in question under direct fluoroscopic and angiographic guidance. A 2.58 x 8mm Emerge balloon was advanced over the lesion in the distal RCA and was initially deployed at 12atm for 22 seconds and then inflated at 12atm for 15seconds. The lesion was stented with a 3.5 x 28mm Synergy drug eluting stent and deployed the stent balloon at 16atm for 20seconds. The post inflation of the stent balloon was performed at 16 atmospheres for 20 seconds. There was 5% residual post stent stenosis at the proximal and distal margin implantation with BOBBY III flow pre and post stent implantation. Patient Problems: Problems Problem Status Onset Chest pain Acute
[2018-12-21] MEDS ORDERED: ATROPINE SULFATE 1 MG/10 ML SYR ONE (10:59)
[2018-12-21] MEDS ORDERED: EPINEPHrine 1 MG/10 ML SYR IVP ONE (10:59)
[2018-12-21] MEDS ORDERED: CLOPIDOGREL BISULFATE 75 MG TAB ONE (11:33)
[2018-12-21] MEDS ORDERED: ATROPINE SULFATE 1 MG/10 ML SYR IVP PRN (11:39)
[2018-12-21] MEDS ORDERED: KETOROLAC 15 MG/1 ML SDV IVP ONE (14:50)
--- NOTE | 2018-12-21 14:50 | HOSPPROG ---
Hospitalist Progress Note Assessment/Plan: 73 yo M w cp, + stress cad: rca stent chest pain: this musculoskeletal one time dose of toradol hyperlipidemia: ldl 48 hypothyroidism: continue meds adrenal insufficiency: he doesnt have adrenal insufficiency. he'd been placed on cortef by pcp for energy boost (!) and has been tapering over years i recommended continuing taper dispo: inpt Subjective: case d/w dr root. s/p RCA stent. cp unchanged Objective: Vital Signs Temp Pulse Resp BP Pulse Ox 36.6 C 72 17 127/77 H 95 12/21/18 08:18 12/21/18 08:18 12/21/18 08:18 12/21/18 08:18 12/21/18 08:18 12/20/18 12/21/18 12/22/18 05:59 05:59 05:59 Intake Total 200 Balance 200 PT 12.5 SEC (12.0-15.0) 12/21/18 03:12 INR 0.97 (0.83-1.16) 12/21/18 03:12 - Physical Exam Constitutional: no apparent distress, appears nourished Eyes: PERRL, anicteric sclera Ears, Nose, Mouth, Throat: moist mucous membranes, hearing normal Cardiovascular: regular rate and rhythym, no murmur, rub, or gallop, other (no point tenderness over chest) Respiratory: no respiratory distress, no rales or rhonchi Gastrointestinal: normoactive bowel sounds Genitourinary: no bladder fullness, No crawley in urethra Skin: warm, normal color Musculoskeletal: full muscle strength Neurologic: AAOx3 ICD10 Worksheet Patient Problems: Problems Problem Status Onset Chest pain Acute
[2018-12-21] MEDS: ZOLPIDEM TARTRATE 5 MG TAB PO SCH (21:20)
[2018-12-22 05:43] VITALS: BP 134/75
[2018-12-22] MEDS: LEVOTHYROXINE 125 MCG TAB PO SCH (05:43)
[2018-12-22] MEDS: ASCORBIC ACID 500 MG TAB PO SCH (08:56)
[2018-12-22] MEDS: ASPIRIN 325 MG TAB PO SCH (08:57)
[2018-12-22] MEDS: IRBESARTAN 75 MG TAB PO SCH (08:57)
[2018-12-22] MEDS: NIACIN 500 MG TAB PO SCH (09:00)
[2018-12-22] MEDS: LIOTHYRONINE SODIUM 5 MCG TAB PO SCH (09:00)
[2018-12-22] MEDS: FLUTICASONE/SALMETER 250/50MCG DISKUS IH SCH (09:16)
[2018-12-22] MEDS ORDERED: CLOPIDOGREL BISULFATE 75 MG TAB PO SCH (09:45)
[2018-12-22] MEDS: HYDROCORTISONE 10 MG TAB PO SCH (09:52)
[2018-12-22] MEDS: HYDROCODONE/APAP 5/325 TAB PO PRN ×2 (09:58→12:30)
--- NOTE | 2018-12-22 10:41 | PDCARPN ---
Cardiology Progress Note Chief Complaint: cp/abnormal MPI/ obstructive RCA disease s/p PCI Assessment/Plan: Assessment: 73-year-old male with known coronary disease on the basis of positive calcium score, hypertension and dyslipidemia intolerant of statins and with Repatha. He was admitted December 19 with 5 days of ongoing chest discomfort. Serial troponins have been negative. EKG nonischemic. Echocardiogram reassuring. #. Coronary disease and chest pain: MPI with inf-lat infarct and inf ischemia [facility] yesterday shows 75-80% obstruction in RCA s/p PTCA/stenting reviewed need for DAPT for 1 year mild nonobstructive disease in other vessels wrist precautions reviewed #. Hypertension: Well controlled Continue irbesartan #. dyslipidemia: LDL appears well-controlled at 48 Continue repath #. Mildly dilated ascending aorta: Continue blood pressure control Serial outpatient surveillance. #. Non flow-limiting carotid disease: Continue primary prevention. Plan: - OK to d/c from cardiac perspective. 12/22/18 10:37 Subjective: Ongoing pain in neck. Reviewed/Discussed With: hospitalist (Dr. Banerjee) Objective: Vital Signs (8 Hrs) Temp Pulse Resp BP Pulse Ox 12/22/18 05:43 97.8 F 58 L 15 134/75 H 95 Intake/Output (24 Hrs) 12/21/18 12/22/18 12/23/18 05:59 05:59 05:59 Intake Total 200 200 Balance 200 200 Intake: Oral (ml) 200 200 Other: Weight 81.647 kg Intake Quantity Yes Sufficient Number of Voids Toilet 2 2 1 Result Diagrams: 12/20/18 10:54 12/19/18 10:45 Telemetry: reviewed/ SR with occasional PVCs - Physical Exam Constitutional: no apparent distress Eyes: PERRL Ears, Nose, Mouth, Throat: moist mucous membranes Cardiovascular: regular rate and rhythm, other (2+ R radial pulse) Skin: no rashes, no edema Neurologic: AAOx3 Psychiatric: cooperative, interactive ICD10 Worksheet Patient Problems: Problems Problem Status Onset Chest pain Acute
--- NOTE | 2018-12-22 14:14 | ASDISCHSUM ---
Discharge Information Plan Status:Home with No Needs Medically Cleared to Leave:12/21/2018 Discharge Date:12/22/2018 12:30 PM CM D/C Disposition:Home, Routine, Self-Care ADT D/C Disposition:Home, Routine, Self-Care Projected Discharge Date:12/22/2018 12:30 PM Transportation at D/C:Family Discharge Delay Reason: Follow-Up Date:12/22/2018 12:30 PM Discharge Slot: Final Diagnosis: Placement Information Patient Contact Information Contact Name:LEILA Relationship: Address:[address] [place] [address] Work Phone: City:[place] Alternate Phone: [facility]/Zip Code:[place] [address] Email: Financial Information Financial Class:Medicare Primary Plan Desc:MEDICARE INPATIENT Primary Plan Number:[id number] Secondary Plan Desc:ANY/POPPY SUPPLEMENT Secondary Plan Number:[id number] Assessment Information LACE LACE Acuity / Level of Answers: Yes Care: Did the patient have an inpatient admission? Comorbidities - select Answers: Coronary Artery Disease all that apply Opioid dependence / Chronic pain Other Notes: HTN; Hx of PE # of Emergency department Answers: 1-2 visits in the last 6 months Score: 11 Date Signed: 12/22/2018 02:12 PM Electronically Signed By:Lula Cox RN [facility] CM Progress Note CM Note CM Note Notes: Pt is a 73 yo M, presented with chest pain. Underwent stress test today. No therapies ordered at this time, pt will likely be discharged independently once medically ready. Pt's is at bedside and supportive. CM available if needs arise. Plan: Independent Date Signed: 12/20/2018 02:18 PM Electronically Signed By:CESAR Chase Case Management Discharge Plan Note Case Management Discharge Discharge Order Complete? Answers: Yes Patient to Obtain Answers: Independently Medications Transportation Arranged Answers: Family/Friends Discharge Comments Notes: 12/22/2018 Case Management Note Pt discharged independent with follow up as directed. Date Signed: 12/22/2018 02:13 PM Electronically Signed By:Lula Cox RN Intervention Information Intervention Type:*RAYMUNDO-Signed Date of Service:12/20/2018 11:58 AM Patient Type:Observation Staff Member:Rand Rojas Hours: Discipline: Severity: Comment:
--- NOTE | 2018-12-22 16:46 | GDS ---
[f rep st] DISCHARGE SUMMARY DISCHARGE DIAGNOSES: 1. Coronary artery disease, status post right coronary artery stent. 2. Hyperlipidemia. 3. Hypothyroidism. 4. Iatrogenic adrenal insufficiency. HISTORY: The patient is a 73-year-old male, who presented with chest pain. His stress test showed r eversible ischemia. He went to cardiac catheterization and was found to have an 80% RCA lesion that was stented with a drug-eluting stent. He will need Plavix for 1 year. He had mild nonobstructive d isease in his other vessels. He is intolerant of statins, but is on Repatha. DISCHARGE MEDICATIONS: Please see computerized record for full detailed list. New medications: 1. Aspirin 325 mg p.o. daily. 2. Plavix 75 mg p.o. daily. ADDITIONAL DISCHARGE INSTRUCTIONS: 1. Continue Plavix for 1 year. 2. Decrease aspirin dose to 81 mg p.o. daily in 1 month. 3. Discuss with your primary care doctor the use of Celebrex in combination with aspirin and Plavix due to increased risk of bleeding. TIME SPENT ON DISCHARGE: Greater than 30 minutes' time was spent arranging this discharge. The duane ent was seen and examined by me on the day of discharge. /[id number]/MODL
== END 2018-12-22 12:30 | disposition home or self-care (01) | DRG 247 ==
LOC: F2W 14:14 → OBSVTOIN 12-20 13:34
PROVIDERS: ADMIT Internal Medicine; ATTEND Internal Medicine
PROC: 027034Z Dilation of Coronary Artery, One Artery with Drug-eluting Intraluminal Device, Percutaneous Approach (ICD-10-PCS; principal; 2018-12-21)
DX: I25.10 Atherosclerotic heart disease of native coronary artery without angina pectoris (principal); E27.40 Unspecified adrenocortical insufficiency; E78.5 Hyperlipidemia, unspecified; E03.9 Hypothyroidism, unspecified; G47.33 Obstructive sleep apnea (adult) (pediatric); Z87.891 Personal history of nicotine dependence; Z86.711 Personal history of pulmonary embolism
CPT/HCPCS: 84484-ER; A9500; C1725; C1769; C1874; C1887; C9600; G0378; J0461; J1644; J1885; J2250; J2270; J2785; J3010; Q9967